=== PATIENT | male | born 1980 | race Caucasian/White ===

== ENCOUNTER 2017-03-11 11:20 | Emergency (ER) | payer SELFPAY ==
[~2017-03-11] VITALS: Ht 180.3 cm; Wt 77.1 kg
--- NOTE | ~2017-03-11 | CR142 ---
[facility] A Service of [facility] RADIOLOGY TEXT RESULTS PATIENT: DAVONTE ROBERTSON LOCATION: CFTX : 84 UNIT #: [id number] AGE: [address]: Rimma Escalante SEX: M ORDER DR: [id number] [facility] [address] [place], [place] [address] [id number] E MR#: [id number] Acc #: [id number] NAME: DAVONTE ROBERTSON : 1980 SEX: M STUDY DATE/TIME: 03/11/2017 11:53 UNIT: [facility] ROOM: STUDY DESCRIPTION: CR Hand Min 3 Views Rt Attending Physician: Rimma Escalante P.A.-C. Ordering Physician: Rimma Escalante P.A.-C. Primary Care Physician: No Primary Care Physician MEDICAL IMAGING REPORT This report is preliminary unless electronic signature is present EXAM Right hand HISTORY Right hand pain 4 weeks since hitting hand on car dashboard. FINDINGS 3 views of the right hand were obtained. There is a fracture through the proximal end of the fifth metacarpal bone. There is a fragment of bone that is about 6 x 2 mm that is separate from the rest of the bone. Margins are smooth consistent with an older fracture. The other bones are normal. IMPRESSION Slightly displaced fracture arising from the proximal end of the fifth metacarpal bone. Dictated by... Goyo Leonard M.D. THIS IS AN ELECTRONICALLY VERIFIED REPORT Goyo Leonard M.D. at 03/11/2017 3:34 PM EL/evans TD: 03/11/2017 14:13 JOB #: [id number] MEDICAL IMAGING REPORT Page 1 of 1 COPY
[~2017-03-11 11:20] MED LIST: AMOXICILLIN PO; FLEXERIL PO; TYLENOL325 M1 PO; VOLTAREN75 MG PO
== END 2017-03-11 13:05 | disposition home or self-care (01) ==
LOC: CED 11:20 → CFTX 11:20
DX: S62.316A Displaced fracture of base of fifth metacarpal bone, right hand, initial encounter for closed fracture (principal); Z87.891 Personal history of nicotine dependence; J45.909 Unspecified asthma, uncomplicated; W22.8XXA Striking against or struck by other objects, initial encounter; Y92.810 Car as the place of occurrence of the external cause
CPT/HCPCS: 29125; 73130; 99283